=== PATIENT | female | born 1995 | race Caucasian/White ===

== ENCOUNTER 2018-06-12 13:38 | Emergency (ER) | payer OTHER ==
[2018-06-12 14:05] VITALS: BP 120/82
--- NOTE | 2018-06-12 16:36 | ED Physician Documentation ---
PD HPI MHE - Stated complaint Stated Complaint: SI - Chief complaint Chief Complaint: MHE - History obtained from History obtained from: Patient - History of Present Illness Primary symptom: Depression (She has long-standing untreated depression. They have been stationed here for a few months. Her is on shore duty. She does not really have any friends here. She has vague suicidal ideation without plan and no intent. She would like a referral for a therapist. She denies drug or alcohol use except for occasional marijuana.) Review of Systems Eyes: denies: Loss of vision, Decreased vision Cardiac: denies: Chest pain / pressure, Palpitations Respiratory: denies: Dyspnea, Cough PD PAST MEDICAL HISTORY - Present Medications Home Medications: Ambulatory Orders Medication Instructions Recorded Confirmed No Known Home Medications 06/12/18 06/12/18 - Allergies Allergies/Adverse Reactions: Allergies Allergy/AdvReac Type Severity Reaction Status Date / Time No Known Drug Allergies Allergy Verified 06/12/18 14:05 PD ED PE NORMAL - Vitals Vital signs reviewed: Yes - General General: Alert and oriented X 3, No acute distress - HEENT HEENT: PERRL, EOMI - Neck Neck: Supple, no meningeal sign, No bony TTP - Neuro Neuro: Alert and oriented X 3, supervisor webbing 2-12 intact Eye Opening: Spontaneous Motor: Obeys Commands Verbal: Oriented GCS Score: 15 - Psych Psych: Normal mood, Normal affect Results - Vitals Vitals: Vital Signs - 24 hr 06/12/18 13:57 Temperature 36.5 C Heart Rate 81 Respiratory 16 Rate Blood Pressure 120/82 H O2 Saturation 100 Oxygen O2 Source Room air PD MEDICAL DECISION MAKING - ED course ED course: 23-year-old woman presents with depression and would like a referral for outpatient therapy. There is no need or indication for involuntary therapy/treatment. - Sepsis Event Vital Signs: Vital Signs - 24 hr 06/12/18 13:57 Temperature 36.5 C Heart Rate 81 Respiratory 16 Rate Blood Pressure 120/82 H O2 Saturation 100 Oxygen O2 Source Room air Departure - Departure Disposition: 01 Home, Self Care Clinical Impression: Depression Condition: Good Record reviewed to determine appropriate education?: Yes Instructions: ED Depression Comments: Call [facility] for follow-up. Call today. [phone]. Discharge Date/Time: 06/12/18 16:48
== END 2018-06-12 16:48 | disposition home or self-care (01) ==
LOC: ED 13:38
DX: F32.9 Major depressive disorder, single episode, unspecified (principal)
CPT/HCPCS: 99281; 99282

== ENCOUNTER 2018-07-27 13:07 | Emergency (ER) | payer OTHER ==
--- NOTE | 2018-07-27 13:28 | ED Physician Documentation ---
History of Present Illness - Stated complaint Stated Complaint: FEMALE - Chief complaint Chief Complaint: General - History obtained from History obtained from: Patient - History of Present Illness Timing: Other (G3 now G4 with ParaGard IUD in place about a-year-old still with regular menses, last was at the beginning of June. When she recognized she was late on her menses she took a test to lay her mind because she could not be but it was positive. She had spotting a few days ago which is now gone. No pelvic pain, cramping or bleeding now.) Review of Systems Ten Systems: 10 systems reviewed and negative Nose: reports: Reviewed and negative Cardiac: reports: Reviewed and negative Respiratory: reports: Reviewed and negative PD PAST MEDICAL HISTORY - Present Medications Home Medications: Ambulatory Orders Medication Instructions Recorded Confirmed No Known Home Medications 06/12/18 07/27/18 - Allergies Allergies/Adverse Reactions: Allergies Allergy/AdvReac Type Severity Reaction Status Date / Time No Known Drug Allergies Allergy Verified 07/27/18 13:19 PD ED PE NORMAL - Vitals Vital signs reviewed: Yes - General General: Alert and oriented X 3, No acute distress - Neck Neck: Supple, no meningeal sign, No bony TTP - Respiratory Respiratory: No respiratory distress - Abdomen Abdomen: Normal bowel sounds, Soft, Non tender - Derm Derm: Normal color, Warm and dry - Neuro Neuro: Alert and oriented X 3, Normal speech - Psych Psych: Normal mood, Normal affect Results - Vitals Vitals: Vital Signs - 24 hr 07/27/18 13:15 Temperature 36.7 C Heart Rate 85 Respiratory 14 Rate Blood Pressure 131/79 H O2 Saturation 100 Oxygen O2 Source Room air - Labs Labs: Laboratory Tests 07/27/18 07/27/18 07/27/18 13:42 13:42 13:42 WBC 6.0 RBC 5.04 Hgb 11.6 L Hct 35.1 L MCV 69.7 L MCH 23.0 L MCHC 33.0 RDW 16.8 H Plt Count 245 MPV 8.9 Neut # (Auto) 3.7 Lymph # (Auto) 1.7 Lyon # (Auto) 0.5 Eos # (Auto) 0.1 Baso # (Auto) 0.0 Absolute Nucleated RBC 0.00 Nucleated RBC % 0.1 Manual Slide Review Indicated Platelet Estimate NORMAL (130-450,000) Platelet Morphology NORMAL APPEARANCE RBC Morph Micro Appear 2+ MICROCYTOSIS Sodium 135 Potassium 3.6 Chloride 106 Carbon Dioxide 17 L Anion Gap 12.0 BUN 10 Creatinine 0.6 Estimated GFR (MDRD) 124 Glucose 73 Calcium 9.0 HCG, Quant Blood Type A POSITIVE 07/27/18 13:42 WBC RBC Hgb Hct MCV MCH MCHC RDW Plt Count MPV Neut # (Auto) Lymph # (Auto) Lyon # (Auto) Eos # (Auto) Baso # (Auto) Absolute Nucleated RBC Nucleated RBC % Manual Slide Review Platelet Estimate Platelet Morphology RBC Morph Micro Appear Sodium Potassium Chloride Carbon Dioxide Anion Gap BUN Creatinine Estimated GFR (MDRD) Glucose Calcium HCG, Quant 68.77 Blood Type - Rads (name of study) OB sono Radiology: Final report received (No IUP, trace free fluid) PD MEDICAL DECISION MAKING - ED course ED course: 23-year-old woman with ParaGard IUD in place presents with a positive test and concern therefore for ectopic . Ultrasound shows no IUP or evidence of ectopic and beta-hCG is only 68. Case discussed by phone with Dr. Field, on-call OB who recommends serial beta-hCG. Departure - Departure Disposition: 01 Home, Self Care Clinical Impression: Threatened Condition: Good Record reviewed to determine appropriate education?: Yes Instructions: ED Miscarriage Poss Follow-Up: Eduardo Field MD [Provider Admit Priv/Credential] - Comments: Call the OB office first thing on Sunday, make sure they are where he was seen in the day and I spoke with Dr. Field. He will need to have your beta hCG rechecked which was only 68 today. Return if worse or if new symptoms develop.
[2018-07-27 13:58] LABS: CREATININE 0.6 mg/dL (0.4-1.0)
[2018-07-27 14:00] LABS: BASOPHILS % (AUTO) 0.6 %; EOSINOPHILS # (AUTO) 0.1 10^3/uL (0.0-0.7); EOSINOPHILS % (AUTO) 1.4 %; HGB - HEMOGLOBIN 11.6 g/dL (12.0-16.0); LYMPHOCYTES # (AUTO) 1.7 10^3/uL (1.5-3.5); LYMPHOCYTES % (AUTO) 28.4 %; MEAN CORPUSCULAR VOLUME 69.7 fL (81.0-99.0); MEAN PLATELET VOLUME 8.9 fL (7.9-10.8); MONOCYTES # (AUTO) 0.5 10^3/uL (0.0-1.0); MONOCYTES % (AUTO) 9.1 %; NEUTROPHILS # (AUTO) 3.7 10^3/uL (1.5-6.6); NEUTROPHILS % (AUTO) 60.5 %; PLT - PLATELET COUNT 245 10^3/uL (130-450); RED BLOOD COUNT 5.04 10^6/uL (4.20-5.40); RED CELL DISTRIBUTION WIDTH 16.8 % (12.0-15.0)
[2018-07-27 14:17] LABS: PLATELET ESTIMATE, MANUAL NORMAL (130-450,000) (NORMAL); PLATELET MORPHOLOGY NORMAL APPEARANCE (NORMAL); RBC MORPHOLOGY (MULTIPLE) 2+ MICROCYTOSIS (NORMAL)
--- NOTE | 2018-07-27 15:22 | Ultrasound Report ---
Reason: pos preg test, +IUD, sl bleeding, gone Procedure Date: 07/27/2018 Accession Number: [id number] / [id number] Procedure: US - OB First Trimester CPT Code: FULL RESULT: EXAM: FIRST TRIMESTER OBSTETRIC ULTRASOUND (Less than 11 weeks) EXAM DATE: 07/27/2018 02:19 PM. CLINICAL HISTORY: Pos preg test, +IUD, sl bleeding, gone. LMP: 06/07/2018. COMPARISONS: None available. TECHNIQUE: Transabdominal and transvaginal ultrasound examination with static image documentation. CLINICAL DATES: ASSESSMENT: Gestational Sac: No intrauterine gestational sac visualized. MATERNAL STRUCTURES: Uterus: Anteverted/Retroverted. The endometrium measures 16 mm in thickness. Intrauterine device visualized, which appears appropriately placed. Cervix: Closed. Right Ovary/Adnexa: The ovary measures 2.3 x 2.4 x 2.0 cm, volume 5.8 cc. Unremarkable. Left Ovary/Adnexa: The ovary measures 2.8 x 2.6 x 2.7 cm, volume 10.2 cc. Possible involuting corpus luteal cyst measuring 1.7 x 1.8 x 1.6 cm Free Fluid: Trace. Other: None. IMPRESSION: No intrauterine visualized. Given positive test, this represents a of indeterminate location. Recommend continued surveillance of serial quantitative beta hCG with short-term follow-up imaging as indicated. RADIA
[2018-07-27 15:47] VITALS: BP 124/73
== END 2018-07-27 15:47 | disposition home or self-care (01) ==
LOC: ED 13:07
DX: O20.0 Threatened abortion (principal)
CPT/HCPCS: 36415; 76801; 76817; 80048; 84702; 85025; 86900; 86901; 99283

== ENCOUNTER 2018-07-29 13:10 | Emergency (ER) | payer OTHER ==
--- NOTE | 2018-07-29 16:37 | ED Physician Documentation ---
PD HPI FEMALE - Stated complaint Stated Complaint: FEMALE /PREG WKS UNK - Chief complaint Chief Complaint: Abd Pain - History obtained from History obtained from: Patient - History of Present Illness Timing - onset: How many days ago (few) Timing - duration: Days Timing - details: Gradual onset, Still present, Waxing and waning (had cramps and spotting few days ago, early and still has IUD. Seen in ER with quant 68 and U/S showing no visible IUP. She was directed to return or see [facility] in 2-3 days. has still had episodes of cramping and spotting, no fever, no discharge.) Review of Systems Constitutional: denies: Fever, Chills, Myalgias Nose: reports: Congestion. denies: Rhinorrhea / runny nose Throat: denies: Sore throat Cardiac: denies: Chest pain / pressure Respiratory: denies: Cough GI: reports: Nausea. denies: Abdominal Pain, Vomiting, Diarrhea : denies: Dysuria, Frequency Skin: denies: Rash, Lesions PD PAST MEDICAL HISTORY - Past Medical History Cardiovascular: None Respiratory: None Neuro: None Endocrine/Autoimmune: None GI: None - Past Surgical History Past Surgical History: No - Present Medications Home Medications: Ambulatory Orders Medication Instructions Recorded Confirmed Naproxen 375 mg PO BID #20 tablet 07/29/18 Pnv95/Ferrous Fumarate/FA 1 each PO DAILY #30 tablet 07/29/18 [ Tablet] - Allergies Allergies/Adverse Reactions: Allergies Allergy/AdvReac Type Severity Reaction Status Date / Time No Known Drug Allergies Allergy Verified 07/29/18 13:35 - Living Situation Living Situation: reports: With spouse/s.o. Living Arrangement: reports: At home - Social History Does the pt smoke?: No Smoking Status: Never smoker Does the pt drink ETOH?: Yes Does the pt have substance abuse?: No - POLST Patient has POLST: No PD ED PE NORMAL - Vitals Vital signs reviewed: Yes - General General: Alert and oriented X 3, No acute distress, Well developed/nourished - Neck Neck: Supple, no meningeal sign, No adenopathy - Cardiac Cardiac: RRR, No murmur - Respiratory Respiratory: Clear bilaterally - Abdomen Abdomen: Normal bowel sounds, Soft, Non tender, Non distended - Female Female : Deferred - Back Back: No CVA TTP - Derm Derm: Normal color, Warm and dry Results - Vitals Vitals: Oxygen O2 Source Room air - Labs Labs: Laboratory Tests 07/29/18 14:25 HCG, Quant 95.53 PD MEDICAL DECISION MAKING - ED course Complexity details: reviewed results (quant is going up so seems viable and not miscarriage at this time. Still very low/early to get repeat U/S. More likely in about a week or so. ), considered differential, d/w patient Departure - Departure Disposition: Home, Self Care Clinical Impression: Threatened , Early stage of Condition: Stable Record reviewed to determine appropriate education?: Yes Instructions: ED Abdominal Pain Rule Out Ectopic Follow-Up: [facility] [Provider Group] [facility] [Provider Group] Prescriptions: Naproxen 375 mg PO BID #20 tablet Pnv95/Ferrous Fumarate/FA [ Tablet] 1 each PO DAILY #30 tablet Comments: Drink lots of fluids. . Take naproxen twice daily for the next week. Add Tylenol if needed for pains or cramps. Your quantitative hCG did increase from 68-95 which sick just a ongoing developing . Follow-up with [facility] in about 6-7 days for repeat blood test and repeat ultrasound to better localize the . Call them today for an appt. Return to the ER sooner if you have increasing pain, vaginal bleeding, fever, other concerns. Discharge Date/Time: 07/29/18 17:14
[2018-07-29] MEDS ORDERED: NAPROXEN 250 MG TABLET PO STA (17:00)
[2018-07-29 17:15] VITALS: BP 143/84
== END 2018-07-29 17:14 | disposition home or self-care (01) ==
LOC: ED 13:10
DX: O20.0 Threatened abortion (principal); Z3A.00 Weeks of gestation of pregnancy not specified
CPT/HCPCS: 84702; 99283; A9270

== ENCOUNTER 2020-05-24 11:01 | Day surgery (SDC) | payer OTHER ==
[2020-05-24] MEDS ORDERED: METOCLOPRAMIDE 10 MG/2 ML VIAL IVP PRN (11:27)
[2020-05-24] MEDS ORDERED: HYDROmorphone 0.5 MG/0.5 ML SYRINGE IVP PRN (11:27)
[2020-05-24] MEDS ORDERED: NALOXONE 0.4 MG/ML VIAL IVP PRN (11:27)
[2020-05-24] MEDS ORDERED: MORPHINE 2 MG/ML CARPUJECT IVP PRN (11:27)
[2020-05-24] MEDS ORDERED: ATROPINE ABBOJECT 1 MG/10 ML SYRINGE IVP PRN (11:27)
[2020-05-24] MEDS ORDERED: fentaNYL 100 MCG/2 ML VIAL IVP PRN (11:27)
[2020-05-24] MEDS ORDERED: ePHEDrine 50 MG/ML VIAL IVP PRN (11:27)
[2020-05-24] MEDS ORDERED: ONDANSETRON 4 MG/2 ML VIAL IVP PRN (11:27)
[2020-05-24 11:30] LABS: HCG UR QUAL NEGATIVE
[2020-05-24] MEDS ORDERED: LACTATED RINGERS 1,000 ML IV ONE ×2 (11:30→13:59)
--- NOTE | 2020-05-24 11:34 | ANESTHESIA ---
Pre-Anesthesia VS, & Labs - Diagnosis cervical mass - Procedure LEEP under anesthesia Vital Signs: Temp Pulse Resp BP Pulse Ox 36.6 C 85 16 106/73 99 05/24/20 11:08 05/24/20 11:08 05/24/20 11:08 05/24/20 11:08 05/24/20 11:08 Height 5 ft 3.78 in Weight (kg) 71.4 kg Body Mass Index 28.6 - NPO >8 hours - Is Patient ?: No - Lab Results Lab results reviewed: Yes Home Medications and Allergies Home Medications: Ambulatory Orders Escitalopram [Lexapro] 1 DAILY 05/24/20 Methylphenidate HCl [Ritalin] 2 mg PO 05/24/20 Active Medications Atropine Sulfate () 0.5 mg IVP Q5M PRN PRN Reason: Bradycardia Stop: 05/25/20 11:27 Ephedrine Sulfate () 10 mg IVP Q5M PRN PRN Reason: HYPOTENSION Stop: 05/25/20 11:27 Fentanyl (Fentanyl) 25 - 50 mcg IVP Q5M PRN PRN Reason: BREAKTHROUGH PAIN (2nd Choice) Stop: 05/25/20 11:27 Hydromorphone HCl (Dilaudid Inj Syringe) 0.2 - 0.6 mg IVP Q5M PRN PRN Reason: PAIN (First Choice) Stop: 05/25/20 11:27 Lactated Ringer's (Lr) 1,000 mls @ 100 mls/hr IV .Q10H DEEDEE Stop: 05/24/20 21:59 Metoclopramide HCl (Reglan Inj) 10 mg IVP Q6HR PRN PRN Reason: N/V not relieved by Zofran Morphine Sulfate (Morphine (Carpuject)) 2 - 4 mg IVP Q5M PRN PRN Reason: PAIN (3rd Choice) Stop: 05/25/20 11:27 Naloxone HCl (Narcan) 0.1 mg IVP Q2M PRN PRN Reason: RESP RATE <8 Stop: 05/25/20 11:27 Ondansetron HCl (Zofran Inj) 4 mg IVP ONCE PRN PRN Reason: N/V (First Choice) Stop: 05/25/20 11:27 Scopolamine HBr (Transderm-Scop) 1 patch TOP Q3D DEEDEE No Known Home Medications 05/20/20 Allergies/Adverse Reactions: Allergies Allergy/AdvReac Type Severity Reaction Status Date / Time strawberry Allergy Anaphylaxis Verified 05/20/20 10:11 Anes History & Medical History - Anesthetic History Anesthesia Complications: reports: No previous complications Family history of Anesthesia Complications: Denies Family history of Malignant Hyperthermia: Denies - Medical History Cardiovascular: reports: None Pulmonary: reports: None Gastrointestinal: reports: None Urinary: reports: None Neuro: reports: Motion sickness Musculoskeletal: reports: None Endocrine/Autoimmune: reports: None Skin: reports: None Smoking Status: Never smoker Psychosocial: reports: Anxiety, Cannabis - Surgical History Eyes Ears Nose Throat (EENT): Tonsil/Adenoidectomy Exam General: Alert, Oriented x3, Cooperative, No acute distress Dental: WNL Mouth Openin Fingerbreadth Neck Mobility: Normal Mallampati classification: II Respiratory: Lungs clear, Normal breath sounds, No respiratory distress Cardiovascular: Regular rate, Normal S1, Normal S2, No murmurs Plan Anesthesia Type: MAC Consent for Procedure(s) Verified and Reviewed: Yes Code Status: Attempt Resuscitation ASA classification: 1-Healthy patient Is this case an emergency?: No
[2020-05-24] MEDS ORDERED: LACTATED RINGERS 1,000 ML IV SCH ×2 (12:00→15:00)
[2020-05-24] MEDS ORDERED: SCOPOLAMINE PATCH TOP SCH (12:00)
[2020-05-24] MEDS ORDERED: LIDOCAINE 2%-EPI 1:100000 20 ML MDV ONE (12:56)
[2020-05-24] MEDS ORDERED: POTASSIUM IODIDE/IODINE 14 ML SOLUTION ONE (12:56)
[2020-05-24] MEDS ORDERED: LIDOCAINE 2%-EPI 1:100000 20 ML MDV SUBQ ONE (13:23)
[2020-05-24] MEDS ORDERED: POTASSIUM IODIDE/IODINE 14 ML SOLUTION TOP ONE (13:24)
[2020-05-24] MEDS ORDERED: LIDOCAINE 1%-EPI 1:100000 20 ML MDV SUBQ ONE ×2 (13:33)
--- NOTE | 2020-05-24 14:14 | OPERATIVE REPORT ---
Operative Report - General Procedure Date: 05/24/20 Planned Procedure: LEEP Pre-Op Diagnosis: Cervical Mass Procedure Performed: LEEP Post Op Diagnosis: Same as above - Procedure Note Primary Surgeon: Indira Sloan Anesthesia Provider: Timbo Butler Anesthesia Technique: Local, MAC Pathology: Portions of cervix IV Fluids (mL): 800 Estimated Blood Loss (mL): 30 Indications: Cervical mass Findings: Exam under anesthesia Uterus with normal size, shape, and contour, anteverted. Speculum Approximately 1cm x 5mm white raised plaque on anterior lip of cervix. Lugol's solution applied with entire area non-staining, and additional non-staining area circumferentially around cervical os. Complications: None - Other Other Information/Narrative: Patient was counseled and consented for the procedure. The patient was taken to the operating room and monitored anesthesia care was provided without complication. The patient was prepared and draped in the usual sterile fashion in low lithotomy position. A procedure time out was performed. An exam under anesthesia was performed with findings as above. A coated speculum was placed in the vagina as well as a coated vaginal wall retractors to fully visualize the cervix. Exam of the cervix with findings as described above. A local paracervical block using 10ml of 1% lidocaine with epinephrine was injected. After Lugol's iodine was applied, the loop wire was used to excise portions of the cervix at the bottom, top, and right side. Endocervical curettage was performed. The entire LEEP bed was cauterized, ensuring at least 2mm of the edges were cauterized. Monsel solution was applied to the LEEP bed. The speculum was removed. The LEEP specimens were labeled bottom LEEP with suture at 0600, top LEEP with suture at 1200, and right LEEP with suture at 1000. The patient tolerated the procedure well. All surgical counts were correct x2. The patient was transferred to PACU in stable condition.
[2020-05-24 14:22] VITALS: BP 111/69
--- NOTE | 2020-05-24 15:00 | ANESTHESIA POST OP EVALUATION ---
Anesthesia Post Eval - Post Anesthesia Eval Vitals: Last Vital Signs Temp 36.4 C L 05/24/20 14:20 Pulse 78 05/24/20 14:20 Resp 11 L 05/24/20 14:20 BP 111/69 05/24/20 14:20 Pulse Ox 100 05/24/20 14:20 CV Function Including HR & BP: positive: Stable Pain Control: positive: Satisfactory Nausea & Vomiting: positive: Negative Mental Status: positive: Baseline Respiratory Status: Airway Patent Hydration Status: Satisfactory Anesthesia Complications: positive: None
== END 2020-05-24 11:02 | disposition home or self-care (01) ==
LOC: SDS 11:01
PROVIDERS: ATTEND Obstetrics & Gynecology
PROC: 0UBC7ZX Excision of Cervix, Via Natural or Artificial Opening, Diagnostic (ICD-10-PCS; principal; 2020-05-24 12:15)
DX: N87.1 Moderate cervical dysplasia (principal); N88.0 Leukoplakia of cervix uteri; F41.9 Anxiety disorder, unspecified
CPT/HCPCS: 81025

== ENCOUNTER 2020-12-27 07:51 | Emergency (ER) | payer OTHER ==
[2020-12-27] MEDS ORDERED: KETOROLAC 30 MG/ML VIAL IM STA (08:26)
--- NOTE | 2020-12-27 08:29 | ED Physician Documentation ---
History of Present Illness - Stated complaint Stated Complaint: CHEST PX - Chief complaint Chief Complaint: Cardiac - History obtained from History obtained from: Patient - Additonal information Additional information: 25-year-old woman with history of depression, PTSD, BPD, ADHD, no other medical problems presents with right-sided chest pain on waking this morning, progressively worsening over the course of the day while at work, constant, right-sided, worse with deep breathing, worse with bending over and stretching the right arm, radiating to the back. Moderate severity. Throbbing quality. Denies shortness of breath, cough, fever, vomiting, leg swelling, history of clots or cardiac condition. PERC negative. Review of Systems Ten Systems: 10 systems reviewed and negative Constitutional: denies: Fever, Chills Cardiac: reports: Chest pain / pressure Respiratory: denies: Dyspnea, Cough GI: denies: Abdominal Pain Skin: denies: Rash Musculoskeletal: reports: Back pain PD PAST MEDICAL HISTORY - Past Medical History Cardiovascular: None Respiratory: None Neuro: Motion sickness Endocrine/Autoimmune: None GI: None : None HEENT: None Psych: Depression, Anxiety, ADD/ADHD Musculoskeletal: None Derm: None - Past Surgical History Past Surgical History: No HEENT: Tonsil/Adenoidectomy - Present Medications Home Medications: Ambulatory Orders Medication Instructions Recorded Confirmed Escitalopram [Lexapro] 1 DAILY 05/24/20 Methylphenidate HCl [Ritalin] 2 mg PO 05/24/20 - Allergies Allergies/Adverse Reactions: Allergies Allergy/AdvReac Type Severity Reaction Status Date / Time strawberry Allergy Anaphylaxis Verified 12/27/20 08:01 - Social History Does the pt smoke?: No Smoking Status: Never smoker Does the pt drink ETOH?: Yes Does the pt have substance abuse?: No - Immunizations Immunizations are current?: No Immunizations: TDAP >10years/unknown - POLST Patient has POLST: No PD ED PE NORMAL - Vitals Vital signs reviewed: Yes - General General: Alert and oriented X 3, No acute distress, Well developed/nourished - HEENT HEENT: Atraumatic, PERRL, EOMI - Neck Neck: Supple, no meningeal sign - Cardiac Cardiac: RRR, No murmur - Respiratory Respiratory: No respiratory distress, Clear bilaterally - Abdomen Abdomen: Non tender, Non distended - Female Female : Deferred - Rectal Rectal: Deferred - Back Back: No spinal TTP - Derm Derm: Normal color, Warm and dry, No rash - Extremities Extremities: No deformity, No edema - Neuro Neuro: Alert and oriented X 3 - Psych Psych: Normal mood, Normal affect Results - Vitals Vitals: Vital Signs - 24 hr 12/27/20 07:58 Temperature 36.4 C L Heart Rate 84 Respiratory 16 Rate Blood Pressure 163/93 H O2 Saturation 100 Oxygen O2 Source Room air PD MEDICAL DECISION MAKING - ED course ED course: 25-year-old woman presents with chest wall pain. EKG and chest x-ray are noncontributory. Return precautions given. Patient will follow up with her primary doctor. Departure - Departure Disposition: 01 Home, Self Care Clinical Impression: Chest wall pain Condition: Good Instructions: ED Strain Chest Wall Comments: You were seen in the emergency department for chest wall strain. Your chest x- ray and EKG were normal. Please return to the emergency department if you develop any new or worsening symptoms or other concerns. Follow-up with your primary doctor. Take ibuprofen 600 mg every 6 hours as needed for pain on a full stomach. Use warm compresses for 20 minutes every hour alternating with ice for 20 minutes every hour. Get lots of rest and do gentle stretching exercises but do not overstrain yourself. Forms: Activity restrictions
--- NOTE | 2020-12-27 09:00 | XRAY Report ---
PROCEDURE: Chest 2 View X-Ray INDICATIONS: R chest pain TECHNIQUE: 2 view(s) of the chest. COMPARISON: None. FINDINGS: Surgical changes and devices: None. Lungs and pleura: No pleural effusions or pneumothorax. Lungs are clear. Mediastinum: Mediastinal contours are normal. Heart size is normal. Bones and chest wall: No suspicious bony abnormalities. Soft tissues appear unremarkable. IMPRESSION: No acute cardiopulmonary disease. Reviewed by: Otilio De La Vega MD on 12/27/2020 7:58 AM JOHNATHON Approved by: Otilio De La Vega MD on 12/27/2020 7:58 AM AKNICK Station ID: [id number]
[2020-12-27 09:21] VITALS: BP 132/75
== END 2020-12-27 09:20 | disposition home or self-care (01) ==
LOC: ED 07:51
DX: R07.89 Other chest pain (principal); S29.011A Strain of muscle and tendon of front wall of thorax, initial encounter; X50.0XXA Overexertion from strenuous movement or load, initial encounter; Y93.89 Activity, other specified
CPT/HCPCS: 93005; 96372; 99283; 99284

== ENCOUNTER 2021-01-22 17:41 | Emergency (ER) | payer OTHER ==
[2021-01-22 18:44] LABS: BASOPHILS % (AUTO) 0.5 %; EOSINOPHILS # (AUTO) 0.1 10^3/uL (0.0-0.7); EOSINOPHILS % (AUTO) 0.8 %; HCT - HEMATOCRIT 36.1 % (37.0-47.0); HGB - HEMOGLOBIN 11.4 g/dL (12.0-16.0); LYMPHOCYTES # (AUTO) 2.1 10^3/uL (1.5-3.5); LYMPHOCYTES % (AUTO) 26.3 %; MEAN CORPUSCULAR HEMOGLOBIN 24.3 pg (27.0-31.0); MEAN CORPUSCULAR HGB CONC 31.6 g/dL (32.0-36.0); MEAN PLATELET VOLUME 9.8 fL (7.9-10.8); MONOCYTES # (AUTO) 0.7 10^3/uL (0.0-1.0); MONOCYTES % (AUTO) 8.8 %; NEUTROPHILS % (AUTO) 63.3 %; PLT - PLATELET COUNT 295 10^3/uL (130-450); RED BLOOD COUNT 4.69 10^6/uL (4.20-5.40); RED CELL DISTRIBUTION WIDTH 14.6 % (12.0-15.0); WHITE BLOOD COUNT 7.9 x10^3/uL (4.8-10.8)
[2021-01-22 18:57] LABS: ALBUMIN 4.5 g/dL (3.2-5.5); ALBUMIN/GLOBULIN RATIO 1.6 (1.0-2.2); BILIRUBIN,TOTAL 0.5 mg/dL (0.2-1.0); CALCIUM 9.5 mg/dL (8.5-10.3); CREATININE 0.7 mg/dL (0.4-1.0); POTASSIUM 3.8 mmol/L (3.5-5.0); TOTAL PROTEIN 7.4 g/dL (6.7-8.2)
--- NOTE | 2021-01-22 19:09 | XRAY Report ---
PROCEDURE: Chest 1 View X-Ray INDICATIONS: dyspnea TECHNIQUE: One view of the chest was acquired. COMPARISON: None FINDINGS: Surgical changes and devices: None. Lungs and pleura: No pleural effusions or pneumothorax. Lungs are clear. Mediastinum: Mediastinal contours appear normal. Heart size is normal. Bones and chest wall: No suspicious bony lesions. Overlying soft tissues appear unremarkable. IMPRESSION: No evidence of acute pulmonary process. Reviewed by: Jesus Vidal MD on 01/22/2021 7:08 PM PDT Approved by: Jesus Vidal MD on 01/22/2021 7:08 PM PDT Station ID: [id number]
[2021-01-22] MEDS ORDERED: predniSONE 20 MG TABLET PO STA (19:23)
--- NOTE | 2021-01-22 19:25 | ED Physician Documentation ---
PD HPI CHEST PAIN - Stated complaint Stated Complaint: SOA - Chief complaint Chief Complaint: Resp - History obtained from History obtained from: Patient - Additional information Additional information: 25-year-old woman with history of some mental health issues but otherwise healthy. No history of heart or lung issues. She developed shortness of breath since yesterday with mild cough, runny nose, and throat heaviness. She feels like she has to yawn frequently to take a deep breath. She denies fevers or chills. No pedal edema or calf pain. No possibility of . Review of Systems Constitutional: denies: Fever, Chills Eyes: denies: Loss of vision, Decreased vision Nose: reports: Rhinorrhea / runny nose Cardiac: denies: Chest pain / pressure, Palpitations Respiratory: reports: Dyspnea, Cough PD PAST MEDICAL HISTORY - Past Medical History Cardiovascular: None Respiratory: None Neuro: Motion sickness Endocrine/Autoimmune: None GI: None : None HEENT: None Psych: Depression, Anxiety, ADD/ADHD Musculoskeletal: None Derm: None - Past Surgical History Past Surgical History: No HEENT: Tonsil/Adenoidectomy - Present Medications Home Medications: Ambulatory Orders Medication Instructions Recorded Confirmed Escitalopram [Lexapro] 1 tab PO DAILY 05/24/20 Methylphenidate HCl [Ritalin] 2 mg PO DAILY 05/24/20 predniSONE [Deltasone] 20 mg PO [id number] #21 tab 01/22/21 - Allergies Allergies/Adverse Reactions: Allergies Allergy/AdvReac Type Severity Reaction Status Date / Time strawberry Allergy Anaphylaxis Verified 01/22/21 17:54 - Social History Does the pt smoke?: No Smoking Status: Never smoker Does the pt drink ETOH?: Yes Does the pt have substance abuse?: No - Immunizations Immunizations are current?: No Immunizations: TDAP >10years/unknown - POLST Patient has POLST: No PD ED PE NORMAL - Vitals Vital signs reviewed: Yes - General General: Alert and oriented X 3, No acute distress - HEENT HEENT: Ears normal (Tonsils are surgically absent, she has cobblestoning in the retropharynx without swelling.) - Neck Neck: Supple, no meningeal sign, No bony TTP - Cardiac Cardiac: RRR, No murmur - Respiratory Respiratory: No respiratory distress, Clear bilaterally - Abdomen Abdomen: Normal bowel sounds, Soft, Non tender - Back Back: No CVA TTP, No spinal TTP - Derm Derm: Normal color, Warm and dry - Extremities Extremities: No edema, No calf tenderness / cord - Neuro Neuro: Alert and oriented X 3, Normal speech Results - Vitals Vitals: Vital Signs - 24 hr 01/22/21 17:51 Temperature 37.0 C Heart Rate 109 H Respiratory 16 Rate Blood Pressure 135/83 H O2 Saturation 99 Oxygen O2 Source Room air - EKG (time done) 1759 Rate: Rate (enter#) (104) Rhythm: Sinus tachycardia [place]: Normal Intervals: Normal NC QRS: Normal Ischemia: Normal ST segments Computer interpretation: Agree with computer - Labs Labs: Laboratory Tests 01/22/21 01/22/21 01/22/21 18:35 18:35 18:35 WBC 7.9 RBC 4.69 Hgb 11.4 L Hct 36.1 L MCV 77.0 L MCH 24.3 L MCHC 31.6 L RDW 14.6 Plt Count 295 MPV 9.8 Neut # (Auto) 5.0 Lymph # (Auto) 2.1 Payne # (Auto) 0.7 Eos # (Auto) 0.1 Baso # (Auto) 0.0 Absolute Nucleated RBC 0.00 Nucleated RBC % 0.0 D-Dimer < 200.0 L Sodium 137 Potassium 3.8 Chloride 104 Carbon Dioxide 24 Anion Gap 9.0 BUN 13 Creatinine 0.7 Estimated GFR (MDRD) 102 Glucose 89 Calcium 9.5 Total Bilirubin 0.5 AST 19 ALT 22 Alkaline Phosphatase 39 L Troponin I High Sens Total Protein 7.4 Albumin 4.5 Globulin 2.9 Albumin/Globulin Ratio 1.6 Lipase 42 01/22/21 18:35 WBC RBC Hgb Hct MCV MCH MCHC RDW Plt Count MPV Neut # (Auto) Lymph # (Auto) Payne # (Auto) Eos # (Auto) Baso # (Auto) Absolute Nucleated RBC Nucleated RBC % D-Dimer Sodium Potassium Chloride Carbon Dioxide Anion Gap BUN Creatinine Estimated GFR (MDRD) Glucose Calcium Total Bilirubin AST ALT Alkaline Phosphatase Troponin I High Sens < 2.3 L Total Protein Albumin Globulin Albumin/Globulin Ratio Lipase PD MEDICAL DECISION MAKING - ED course ED course: 25-year-old woman presents with shortness of breath. Is associated with runny nose and cobblestoning of the retropharynx with throat tightness. EKG is nonischemic. D-dimer done because of modest sinus tachycardia and negative. Chest x-ray single view interpreted contemporaneously by me is clear. Troponin negative. My suspicion is that this is related to seasonal allergies given the other physical findings and we will trial some steroids. Departure - Departure Disposition: Home, Self Care Clinical Impression: Bronchitis Dyspnea Qualifiers: Dyspnea type: other forms of dyspnea Qualified Code(s): R06.09 - Other forms of dyspnea Condition: Good Record reviewed to determine appropriate education?: Yes Instructions: ED Dyspnea Shortness of Breath Prescriptions: predniSONE [Deltasone] 20 mg PO [id number] #21 tab Comments: As discussed, given the physical findings I suspect this is related to seasonal allergies in the steroid should be quite helpful. Return if worsening. Return if new symptoms develop. Follow-up with your primary care physician, next available appointment regardless.
[2021-01-22 19:33] VITALS: BP 130/80
== END 2021-01-22 19:32 | disposition home or self-care (01) ==
LOC: ED 17:41
DX: J40 Bronchitis, not specified as acute or chronic (principal); R09.89 Other specified symptoms and signs involving the circulatory and respiratory systems; J39.2 Other diseases of pharynx; R00.0 Tachycardia, unspecified
CPT/HCPCS: 36415; 71045; 80053; 83690; 84484; 85025; 85379; 93005; 99284; J7512

== ENCOUNTER 2021-02-24 14:32 | Outpatient (CLI) | payer OTHER ==
--- NOTE | 2021-02-24 14:57 | XRAY Report ---
PROCEDURE: Chest 2 View X-Ray INDICATIONS: PRODUCTIVE COUGH TECHNIQUE: 2 view(s) of the chest. COMPARISON: None. FINDINGS: Surgical changes and devices: None. Lungs and pleura: No pleural effusions or pneumothorax. Lungs are clear. Mediastinum: Mediastinal contours are normal. Heart size is normal. Bones and chest wall: No suspicious bony abnormalities. Soft tissues appear unremarkable. IMPRESSION: No acute cardiopulmonary process demonstrated radiographically. Reviewed by: Hank Jordan MD on 02/24/2021 2:56 PM PDT Approved by: Hank Jordan MD on 02/24/2021 2:56 PM PDT Station ID: [id number]
== END 2021-02-24 23:59 | disposition home or self-care (01) ==
LOC: DI.N 14:32
PROVIDERS: ATTEND Family Medicine
DX: R05 Cough (principal); Z20.822 Contact with and (suspected) exposure to COVID-19
CPT/HCPCS: 87070

== ENCOUNTER 2021-10-20 08:00 | Outpatient (CLI) | payer OTHER | END 2021-10-20 23:59 | LOC: LAB 08:00 | PROVIDERS: ATTEND Physician Assistant | DX: U07.1 COVID-19 (principal) ==

== ENCOUNTER 2022-07-18 01:00 | Emergency (ER) | payer OTHER ==
[2022-07-18] MEDS ORDERED: KETOROLAC 30 MG/ML VIAL IM STA (01:25)
--- NOTE | 2022-07-18 01:28 | ED Physician Documentation ---
History of Present Illness - Stated complaint Stated Complaint: JAW PX - Chief complaint Chief Complaint: Heent - History obtained from History obtained from: Patient - Additonal information Additional information: 27-year-old woman with history of TMJ presents with right jaw pain keeping her from sleep this evening. Patient denies dental issues. able to open and close mouth completely. Review of Systems Musculoskeletal: reports: Neck pain, Other (jaw pain) PD PAST MEDICAL HISTORY - Past Medical History Cardiovascular: None Respiratory: None Neuro: Motion sickness Endocrine/Autoimmune: None GI: None : None HEENT: None Psych: Depression, Anxiety, ADD/ADHD Musculoskeletal: None Derm: None - Past Surgical History Past Surgical History: No HEENT: Tonsil/Adenoidectomy - Present Medications Home Medications: Ambulatory Orders Medication Instructions Recorded Confirmed Escitalopram [Lexapro] 1 tab PO DAILY 05/24/20 Methylphenidate HCl [Ritalin] 2 mg PO DAILY 05/24/20 predniSONE [Deltasone] 20 mg PO [id number] #21 tab 01/22/21 Ketorolac [Toradol] 10 mg PO Q6H PRN #30 tablet 07/18/22 - Allergies Allergies/Adverse Reactions: Allergies Allergy/AdvReac Type Severity Reaction Status Date / Time strawberry Allergy Anaphylaxis Verified 07/18/22 01:09 - Social History Does the pt smoke?: No Smoking Status: Never smoker Does the pt drink ETOH?: Yes Does the pt have substance abuse?: No - Immunizations Immunizations are current?: No Immunizations: TDAP >10years/unknown - POLST Patient has POLST: No PD ED PE NORMAL - Vitals Vital signs reviewed: Yes - General General: Alert and oriented X 3, No acute distress, Well developed/nourished - HEENT HEENT: Atraumatic, PERRL, EOMI, Moist mucous membranes, Pharynx benign, Denti tion benign, Other (R jaw discomfort to palpation) Results - Vitals Vitals: Vital Signs - 24 hr 07/18/22 01:07 Temperature 37.9 C Heart Rate 98 Respiratory 18 Rate Blood Pressure 137/80 H O2 Saturation 97 Oxygen O2 Source Room air PD MEDICAL DECISION MAKING - ED course ED course: 27-year-old woman presents with TMJ like symptoms. Benign exam. Offered Toradol and patient excepted with some relief. Prescription sent to pharmacy. Return precautions given. She will follow-up with her primary care provider. Departure - Departure Disposition: 01 Home, Self Care Clinical Impression: TMJ (temporomandibular joint disorder) Condition: Good Instructions: TMD Self Care Prescriptions: Ketorolac [Toradol] 10 mg PO Q6H PRN #30 tablet PRN Reason: Pain Comments: You are seen in the emergency department for evaluation of jaw pain. A prescription for Toradol was sent to [facility] in [place]. Please do not take Toradol with Advil, ibuprofen, aspirin, or other NSAIDs. Return to the emergency department if you have any new or worsening symptoms or other concerns. Follow-up with your primary doctor.
[2022-07-18 01:47] VITALS: BP 129/73
== END 2022-07-18 01:48 | disposition home or self-care (01) ==
LOC: ED 01:00
DX: M26.601 Right temporomandibular joint disorder, unspecified (principal)
CPT/HCPCS: 96372; 99281; 99283

== ENCOUNTER 2022-10-02 17:25 | Outpatient (CLI) | payer OTHER ==
[2022-10-02 17:45] LABS: BASOPHILS # (AUTO) 0.1 10^3/uL (0.0-0.1); BASOPHILS % (AUTO) 0.7 %; EOSINOPHILS # (AUTO) 0.3 10^3/uL (0.0-0.7); HCT - HEMATOCRIT 36.4 % (37.0-47.0); HGB - HEMOGLOBIN 11.9 g/dL (12.0-16.0); LYMPHOCYTES # (AUTO) 2.5 10^3/uL (1.5-3.5); LYMPHOCYTES % (AUTO) 37.4 %; MEAN CORPUSCULAR HEMOGLOBIN 26.2 pg (27.0-31.0); MEAN CORPUSCULAR HGB CONC 32.7 g/dL (32.0-36.0); MEAN PLATELET VOLUME 9.7 fL (7.9-10.8); MONOCYTES # (AUTO) 0.6 10^3/uL (0.0-1.0); MONOCYTES % (AUTO) 9.3 %; NEUTROPHILS # (AUTO) 3.2 10^3/uL (1.5-6.6); NEUTROPHILS % (AUTO) 47.5 %; PLT - PLATELET COUNT 302 10^3/uL (130-450); RED BLOOD COUNT 4.55 10^6/uL (4.20-5.40); RED CELL DISTRIBUTION WIDTH 13.4 % (12.0-15.0); WHITE BLOOD COUNT 6.8 x10^3/uL (4.8-10.8)
[2022-10-02 18:05] LABS: ALBUMIN 4.4 g/dL (3.2-5.5); ALBUMIN/GLOBULIN RATIO 1.6 (1.0-2.2); BILIRUBIN,TOTAL 0.7 mg/dL (0.2-1.0); CALCIUM 9.1 mg/dL (8.5-10.3); CREATININE 0.7 mg/dL (0.4-1.0); POTASSIUM 3.5 mmol/L (3.5-5.0); TOTAL PROTEIN 7.2 g/dL (6.7-8.2)
[2022-10-02 18:14] LABS: THYROID STIMULATING HORMONE 1.44 uIU/mL (0.34-5.60)
--- NOTE | 2022-10-02 19:06 | XRAY Report ---
PROCEDURE: Chest 2 View X-Ray INDICATIONS: SYMPTOM,SHORTNESS OF BREATH TECHNIQUE: 2 views of the chest were acquired. COMPARISON: 02/24/2021 FINDINGS: Surgical changes and devices: None. Lungs and pleura: No pleural effusions or pneumothorax. Lungs are clear. Mediastinum: Mediastinal contours are normal. Heart size is normal. Bones and chest wall: No suspicious bony abnormalities. Soft tissues appear unremarkable. Incident al note is made of body ornamentation artifact. IMPRESSION: Clear lungs. Reviewed by: Ulices Murphy MD on 10/02/2022 6:05 PM [facility] Approved by: Ulices Murphy MD on 10/02/2022 6:05 PM [facility] Station ID: [id number]
== END 2022-10-02 17:26 | disposition home or self-care (01) ==
LOC: DI 17:25
PROVIDERS: ATTEND Registered Nurse
DX: R06.02 Shortness of breath (principal)
CPT/HCPCS: 36415; 80053; 83540; 84443; 84466; 85025

== ENCOUNTER 2023-02-16 08:00 | Outpatient (CLI) | payer OTHER | END 2023-02-16 23:59 | disposition home or self-care (01) | LOC: LAB.N 08:00 | PROVIDERS: ATTEND Nurse Practitioner | DX: J02.9 Acute pharyngitis, unspecified (principal) | CPT/HCPCS: 87070 ==

== ENCOUNTER 2024-05-20 07:24 | Day surgery (SDC) | payer OTHER ==
--- NOTE | 2024-05-20 07:15 | HISTORY & PHYSICAL EXAMINATION ---
HPI - History of Present Illness HPI Comment/Other: Gila presents today for scheduled LEEP procedure. Last PAP ASC-H, HPV 16+. She is s/p colposcopy on March 28. Declined biopsies on ectocervix at that visit, however, ECC was performed with GARLAND 3. She is feeling well, no concerns. PMH/PSH - Past Medical History Cardiovascular: positive: None Respiratory: positive: None Neuro: positive: Motion sickness Endocrine/Autoimmune: positive: None GI: positive: GERD, Other : positive: None HEENT: positive: None Psych: positive: Panic attacks, ADD/ADHD, Post traumatic stress disorder, Obsessive compulsive disorder, Other Musculoskeletal: positive: None Derm: positive: None MRSA Hx?: No Other Past Medical History: PTDS, ADHD, BPD, cervical dysplasia, asthma, anemia, anxiety disorder, GERD - Past Surgical History Ortho: positive: Other HEENT: positive: Tonsil/Adenoidectomy Other past surgical history: Tonsillectomy, ORIF wrist, LEEP Social & Family Hx - Social History Does the pt smoke?: No Smoking Status: Never smoker Does the pt drink ETOH?: Yes Does the pt have substance abuse?: No Substance Use and Type: Marijuana Additional Social History: Non-smoker, occasional alcohol use, marijuana use - POLST Patient has POLST: No Meds/Allgy - Home Medications Home Medications: Ambulatory Orders Medication Instructions Recorded Confirmed Methylphenidate HCl [Ritalin] 20 mg PO BID 05/24/20 05/20/24 - Allergies Allergies/Adverse Reactions: Allergies Allergy/AdvReac Type Severity Reaction Status Date / Time strawberry Allergy Anaphylaxis Verified 05/20/24 07:59 Exam - Physical Exam Comments/Other: Gen: NAD Head: NCAT CV: normal perfusion Resp: non labored respirations Abd: soft, non tender Ext: no LE edema Impression/Plan - Problem List Problem List: Cervical intraepithelial neoplasia, Grade 3 (GARLAND 3) - Plan to proceed with loop electrosurgical excision procedure (LEEP). - We reviewed risks of the procedure including but not limited to pain, bleeding, infection, damage to nearby structures including bowel/bladder, cervical stenosis, cervical insufficiency, failure to completely remove abnormal cells necessicating future procedure. - Postprocedure instructions and medications were reviewed. Gregg Humphrey MD
[2024-05-20] MEDS: LACTATED RINGERS 1,000 ML IV ONE ×2 (07:38→09:37)
[2024-05-20] MEDS: ACETAMINOPHEN 500 MG TABLET PO ONE (07:48)
[2024-05-20] MEDS ORDERED: BUPIVACAINE 0.5%-EPI 1:200000 PF 10 ML VIAL ONE (08:10)
[2024-05-20] MEDS ORDERED: POTASSIUM IODIDE/IODINE 14 ML SOLUTION ONE (08:10)
[2024-05-20] MEDS: BUPIVACAINE 0.5%-EPI 1:200000 PF 30 ML VIAL SUBQ ONE (08:15)
[2024-05-20] MEDS: FERRIC SUBSULFATE 8 ML SOLUTION (FOR OR) TOP ONE (08:16)
[2024-05-20] MEDS: POTASSIUM IODIDE/IODINE 14 ML SOLUTION TOP ONE (08:16)
--- NOTE | 2024-05-20 08:18 | ANESTHESIA ---
Pre-Anesthesia VS, & Labs - Diagnosis ABNORMAL PAP (ASC-H) POSITIVE HPV - Procedure LEEP UNDER ANESTHESIA Vital Signs: Temp Pulse Resp BP Pulse Ox O2 Flow Rate 36.4 C L 82 14 125/82 H 98 05/20/24 07:39 05/20/24 07:39 05/20/24 07:39 05/20/24 07:39 05/20/24 07:39 Height: 5 ft 5 in Weight (kg): 85.3 kg Body Mass Index: 31.3 BMI Classification: Obese - NPO >8 hours - Is Patient ?: No Home Medications and Allergies Methylphenidate HCl [Ritalin] 20 mg PO BID 05/24/20 Allergies/Adverse Reactions: Allergies Allergy/AdvReac Type Severity Reaction Status Date / Time strawberry Allergy Anaphylaxis Verified 05/20/24 07:59 Anes History & Medical History - Anesthetic History Anesthesia Complications: reports: No previous complications Family history of Anesthesia Complications: Denies Family history of Malignant Hyperthermia: Denies - Medical History Cardiovascular: reports: None Pulmonary: reports: None Gastrointestinal: reports: GERD, Other Urinary: reports: None Neuro: reports: Motion sickness Musculoskeletal: reports: None Endocrine/Autoimmune: reports: None Blood Disorders: reports: None Skin: reports: None Smoking Status: Never smoker Psychosocial: reports: Cannabis (DAILY) History of Cancer?: No Other Past Medical History: PTDS, ADHD, BPD, cervical dysplasia, asthma, anemia, anxiety disorder, GERD - Surgical History Eyes Ears Nose Throat (EENT): reports: Tonsil/Adenoidectomy Orthopedic: reports: Other Other Past Surgical History: Tonsillectomy, ORIF wrist, LEEP Results - EKG Results EKG Comparison: Reviewed EKG, Normal EKG Exam General: Alert, Oriented x3, Cooperative, No acute distress Dental: WNL Mouth Openin Fingerbreadth Neck Mobility: Normal Mallampati classification: I Thyromental Distance: 4-6 cm Mental/Cognitive Status: Alert/Oriented X3, Normal for patient Cognitive Status: Within normal limits Plan Anesthesia Type: General Consent for Procedure(s) Verified and Reviewed: Yes Code Status: Attempt Resuscitation ASA classification: 2-Mild systemic disease Is this case an emergency?: No
[2024-05-20] MEDS ORDERED: fentaNYL 100 MCG/2 ML VIAL IVP PRN (09:35)
[2024-05-20] MEDS ORDERED: ATROPINE ABBOJECT 1 MG/10 ML SYRINGE IVP PRN (09:35)
[2024-05-20] MEDS ORDERED: NALOXONE 0.4 MG/ML VIAL IVP PRN (09:35)
[2024-05-20] MEDS ORDERED: HYDROmorphone 0.5 MG/0.5 ML SYRINGE IVP PRN (09:35)
[2024-05-20] MEDS ORDERED: ePHEDrine 50 MG/ML VIAL IVP PRN (09:35)
[2024-05-20] MEDS ORDERED: ONDANSETRON 4 MG/2 ML VIAL IVP PRN (09:35)
--- NOTE | 2024-05-20 09:43 | OPERATIVE REPORT ---
Operative Report - General Procedure Date: 05/20/24 - Other Other Information/Narrative: DATE OF PROCEDURE: 05/20/2024 Surgeon: Gregg Humphrey MD Assistants: none Pre-Op Diagnosis: GARLAND 3 Post-Op Diagnosis: Same Procedures: LEEP, ECC Findings: Uterus appropriate size and mobile, no adnexal masses appreciated. Specimens: LEEP first pass notched at 6 o'clock, top hat in 2 pieces, and ECC Anesthesia Technique: General Estimated Blood Loss (mls): 1cc Blood Replacement (mls): none Fluid Replacement (mls): see anesthesia record Drains: none Complications: none Condition: stable Procedure Details: The patient was taken to the operating room and general anesthesia was administered. Patient was then placed in the dorsal lithotomy position in Juan A stirrips and draped in the usual sterile fashion. A bimanual exam was performed. The coated speculum was placed in the vagina with good visualization of the cervix. Lugol's solution was applied to the cervix to demarcate area of excision. A paracervical block was placed with 10cc of 0.5% marcaine with epinephrine. The Loop electrosurgical device with a 20 x 10 mm loop was used to remove the transformation zone from left to right. A 10 x 10 mm top hat was then performed. ECC was collected. The cervical bed was cauterized with the roller ball. Monsels was placed on the cervical bed for additional hemostasis. Hemostasis was achieved. No evidence of injury to the vagina, perineum, bowel, or bladder. The patient tolerated the procedure well and was returned to the PACU in stable condition. Gregg Humphrey MD
[2024-05-20] MEDS ORDERED: LACTATED RINGERS 1,000 ML IV SCH (10:00)
[2024-05-20 10:59] VITALS: BP 109/73; O2SAT 98
--- NOTE | 2024-05-20 15:21 | ANESTHESIA POST OP EVALUATION ---
Anesthesia Post Eval - Post Anesthesia Eval Vitals: Last Vital Signs Temp 36 C L 05/20/24 10:30 Pulse 70 05/20/24 10:30 Resp 16 05/20/24 10:30 BP 109/73 05/20/24 10:30 Pulse Ox 98 05/20/24 10:30 O2 Flow Rate CV Function Including HR & BP: Stable Pain Control: Satisfactory Nausea & Vomiting: Negative Mental Status: Baseline Respiratory Status: Airway Patent Hydration Status: Satisfactory Anesthesia Complications: None
== END 2024-05-20 07:25 | disposition home or self-care (01) ==
LOC: SDS 07:24
PROVIDERS: ATTEND Obstetrics & Gynecology
PROC: 0UBC7ZX Excision of Cervix, Via Natural or Artificial Opening, Diagnostic (ICD-10-PCS; principal; 2024-05-20 08:30)
DX: D06.9 Carcinoma in situ of cervix, unspecified (principal); E66.9 Obesity, unspecified; Z68.31 Body mass index [BMI] 31.0-31.9, adult
CPT/HCPCS: 57522; A9270; J7120